=== PATIENT | female | born 1985 | race African-American/Black ===

== ENCOUNTER 2020-05-23 12:31 | Emergency (ER) | payer SELFPAY ==
[~2020-05-23] VITALS: Ht 175.3 cm; Wt 95.0 kg
[2020-05-23] MEDS ORDERED: SODIUM CHLORIDE 0.9% 1,000 ML IV ONE (12:45)
[2020-05-23] MEDS ORDERED: DIAZEPAM 5 MG TABLET PO ONE (13:00)
[2020-05-23 13:25] LABS: BASOPHILS % 0.2 % (0.0-2.0); EOSINOPHILS % 0.3 % (0.0-5.0); HEMATOCRIT. 39.6 % (36.0-48.0); HEMOGLOBIN. 13.6 g/dL (12.0-16.0); LYMPHOCYTES % 17.6 % (20.0-50.0); MEAN CORPUSCULAR HEMOGLOBIN 31.2 pg (28.0-32.0); MEAN CORPUSCULAR VOLUME 90.9 fL (81.0-99.0); MEAN PLATELET VOLUME 8.7 fl (7.4-10.4); MONOCYTES % 5.8 % (2.0-8.0); NEUTROPHILS % 76.1 % (40.0-76.0); PLATELET 222 x1000/uL (130-400); RED BLOOD CELL COUNT 4.36 mill/uL (4.2-5.4); RED CELL DISTRIBUTION WIDTH 13.1 % (11.6-14.6)
[2020-05-23 13:32] LABS: CHLORIDE 106 mEq/L (98-107)
[2020-05-23 13:36] LABS: ETHANOL BLOOD < 10 mg/dL
[2020-05-23 13:41] LABS: CREATINE KINASE 172 IU/L (26-192)
[2020-05-23 14:01] LABS: CLARITY URINE CLOUDY (CLEAR); COLOR URINE YELLOW (YELLOW); KETONES URINE 1+ (NEGATIVE); LEUKOCYTE ESTERASE URINE 1+ (NEGATIVE); NITRITE URINE NEGATIVE (NEGATIVE); OCCULT BLOOD URINE TRACE (NEGATIVE); PH URINE 5.5 (4.5-8.0); PROTEIN URINE NEGATIVE (NEGATIVE); SPECIFIC GRAVITY URINE 1.017 (1.005-1.030)
[2020-05-23 14:22] LABS: *COCAINE SCREEN URINE NEGATIVE (NEGATIVE)
[2020-05-23 14:23] LABS: *BENZODIAZEPINES SCREEN URINE NEGATIVE (NEGATIVE); CANNABINOID URINE SCREEN NEGATIVE (NEGATIVE); METHADONE URINE SCREEN NEGATIVE (NEGATIVE); OPIATES URINE SCREEN NEGATIVE (NEGATIVE); PHENCYCLIDINE URINE SCREEN NEGATIVE (NEGATIVE)
[2020-05-23 14:24] LABS: *BARBITURATES SCREEN URINE NEGATIVE (NEGATIVE)
[2020-05-23 14:26] LABS: *AMPHETAMINES SCREEN URINE PRESUMTIVE POSITIVE (NEGATIVE)
[2020-05-23 18:50] VITALS: BP 122/74
[2020-05-24] MEDS ORDERED: SODIUM CHLORIDE 0.9% 1,000 ML IV ONE (12:45)
== END 2020-05-23 19:07 | disposition home or self-care (01) ==
LOC: ER 12:43
DX: F15.129 Other stimulant abuse with intoxication, unspecified (principal)
CPT/HCPCS: 36415; 80053; 80305; 80307; 80320; 80329; 81003; 82140; 82550; 83605; 83690; 85025; 93005; 96360; 99283; J7030; G0480